=== PATIENT | female | born 1985 | race Caucasian/White ===

== ENCOUNTER 2017-03-07 20:18 | Emergency (ER) | payer OTHER ==
[~2017-03-07] VITALS: Ht 170.2 cm; Wt 80.3 kg
[~2017-03-07 20:18] MED LIST: XANAX0.5 MG PO
[2017-03-07] MEDS ORDERED: KEFLEX500 MG PO (22:37)
[2017-03-07 22:57] VITALS: BP 150/89
== END 2017-03-07 22:58 | disposition home or self-care (01) ==
LOC: EME 20:18
DX: S90.512A Abrasion, left ankle, initial encounter (principal); Y92.828 Other wilderness area as the place of occurrence of the external cause; Y93.16 Activity, rowing, canoeing, kayaking, rafting and tubing; W22.8XXA Striking against or struck by other objects, initial encounter; R07.81 Pleurodynia; Z88.0 Allergy status to penicillin; F17.200 Nicotine dependence, unspecified, uncomplicated
CPT/HCPCS: 71020; 93971; 99281; 99283